=== PATIENT | female | born 1995 | race Two or more races ===

== ENCOUNTER 2025-10-09 15:26 | Emergency (ER) | payer OTHER ==
[~2025-10-09] VITALS: Ht 162.6 cm; Wt 81.6 kg
[~2025-10-09 15:26] MED LIST: LEVOFLOXACIN500 MG PO
[2025-10-09] MEDS ORDERED: TRAMADOL HCL 50 MG TABLET PO ONE (18:15)
[2025-10-09] MEDS ORDERED: 0.9 % SODIUM CHLORIDE 1,000 ML IV ONE (18:15)
[2025-10-09] MEDS ORDERED: FAMOTIDINE/PF 20 MG in 0.9 % SODIUM CHLORIDE 8 ML IV PUSH ONE (18:15)
[2025-10-09] MEDS ORDERED: ACETAMINOPHEN 500 MG GEL..CAP PO ONE ×3 (18:15→22:06)
[2025-10-09] MEDS ORDERED: FAMOTIDINE/PF 20 MG/2 ML VIAL ONE (18:22)
[2025-10-09 19:11] LABS: BASO % 0.6 % (0.1-1.2); EOS # 0.42 (0.04-0.54); EOS % 4.9 % (0.7-7.0); LYMPH # 2.40 (1.18-3.74); LYMPH % 27.9 % (19.3-53.1); MEAN PLATELET VOLUME 10.00 fl (9.4-12.4); MONO # 0.56 (0.24-0.82); MONO % 6.5 % (4.7-12.5); NEUT # 5.14 (1.56-6.13); NEUT % 59.8 % (34.0-71.1); RED CELL DISTRIBUTION WIDTH 13.3 % (11.6-14.4)
[2025-10-09 19:38] LABS: D DIMER 0.96 MG/L
[2025-10-09 19:42] LABS: ALT/SGPT 25.0 U/L (12-78); AST/SGOT 10.0 U/L (15-37); BILIRUBIN TOTAL 0.45 mg/dL (0.3-1.2); BUN CREA RATIO 20.0 (7.0-25.0); CREATININE SERUM 0.64 mg/dL (0.55-1.02); GFR 108.23; GLOBULINA 3.9 G/DL (2.4-3.5); GLUCOSE FASTING 85.0 mg/dL (65-100); OSMOLALITY SERUM 277.0 MOSM/KG (275-295)
[2025-10-09 20:16] LABS: URINE BILIRRUBIN Negative (NEGATIVE); URINE BLOOD Negative; URINE COLOR Yellow; URINE GLUCOSE Negative (NEGATIVE); URINE LEUKOCYTE Negative; URINE NITRATE Negative; URINE PROTEIN Trace (NEGATIVE); URINE UROBILINOGEN 1.0 E.U./dl
[2025-10-09 20:20] LABS: URINE BACTERIA 569.7 uL (0.0-1933); URINE EPITHELIAL CELLS 53.3 uL (0.0-38.8); URINE RBC 128.2 uL (0.0-20.8); URINE WBC 3.5 uL (0.0-23.2)
[2025-10-09 20:25] LABS: COVID-19 AG NEGATIVE (NEGATIVE)
[2025-10-09 20:32] LABS: INR 1.04
[2025-10-09 21:06] LABS: URINE APPEARANCE CLEAR; URINE CAST 0.00 uL (0.0-1.40); URINE KETONE 80 (NEGATIVE)
[2025-10-09 21:11] LABS: URINE CRYSTALS NEGATIVE /HPF
[2025-10-09] MEDS ORDERED: GABAPENTIN 100 MG CAPSULE PO ONE (22:30)
[2025-10-09] MEDS ORDERED: ENOXAPARIN SODIUM 80 MG/0.8 ML SYRINGE SUBCUTANEO ONE (23:45)
[2025-10-10] MEDS ORDERED: ENOXAPARIN SODIUM 80 MG/0.8 ML SYRINGE SUBCUTANEO ONE (00:11)
[2025-10-10] MEDS ORDERED: ACETAMINOPHEN 500 MG GEL..CAP PO ONE (09:45)
== END 2025-10-10 10:50 | disposition home or self-care (01) ==
LOC: ER 15:26
PROVIDERS: General Practice
DX: I99.8 Other disorder of circulatory system (principal); I82.491 Acute embolism and thrombosis of other specified deep vein of right lower extremity; Z20.822 Contact with and (suspected) exposure to COVID-19